=== PATIENT | female | born 1950 | race Caucasian/White ===

== ENCOUNTER 2018-01-11 14:48 | Outpatient (CLI) | payer BC ==
[2018-01-11 15:57] LABS: #Lymphocytes 1.6 thou/uL (1.20-3.40); #Monocytes 0.9 thou/uL (0.11-0.59); #Neutrophils 9.5 thou/uL (1.40-6.50); %Basophils 0.1 % (0.0-1.0); %Eosinophils 0.2 % (0.0-10.0); %Lymphocytes 13.1 % (21.0-51.0); %Monocytes 7.2 % (0.0-10.0); %Neutrophils 79.4 % (42.0-75.0); Hemoglobin 13.9 g/dL (12.0-16.0); Mean Corpuscular HGB CONC 32.3 g/dL (32.0-36.0); Mean Corpuscular Hemoglobin 27.6 pg (27.0-31.0); Mean Corpuscular Volume 85.3 fL (78.0-98.0); Mean Platelet Volume 8.1 fL (7.4-10.4); Platelet Count 308 thou/uL (130-400); RBC Distribution Width 13.5 % (11.5-14.5); Red Blood Cell (RBC) Count 5.04 mill/uL (4.20-5.40); White Blood Cell (WBC) Count 11.9 thou/uL (4.8-10.8)
[2018-01-11 16:12] LABS: ALT (SGPT) 22 U/L (8-55); AST (SGOT) 13 U/L (5-34); Albumin 4.4 g/dL (3.4-4.8); Alkaline Phosphatase 97 U/L (40-150); Anion Gap 13 mmol/L (10-20); BUN (Urea Nitrogen) 30 mg/dL (9.8-20.1); Bilirubin, Total 0.4 mg/dL (0.2-1.2); Calc. Creatinine Clearance 0 mL/min (70-130); Calcium 9.9 mg/dL (7.8-10.44); Carbon Dioxide 27 mmol/L (23-31); Chloride 101 mmol/L (98-107); Estimated GFR-MDRD 61; Globulin 3.5 g/dL (2.4-3.5); Glucose 124 mg/dL (80-115); Protein, Total 7.9 g/dL (6.0-8.3); Sodium 137 mmol/L (136-145)
--- NOTE | 2018-01-12 15:15 | EKG ---
Test Reason : Blood Pressure : / mmHG Vent. Rate : 053 BPM Atrial Rate : 053 BPM P-R Int : 156 ms QRS Dur : 086 ms QT Int : 440 ms P-R-T Axes : 065 037 021 degrees QTc Int : 412 ms Sinus bradycardia Otherwise normal ECG When compared with ECG of 26-JUL-2014 08:34, Vent. rate has decreased BY 34 BPM Nonspecific T wave abnormality no longer evident in Lateral leads Confirmed by ERICA ABREU, . SIsabel ([id number]) on 01/12/2018 3:15:08 PM Referred By: STEPHEN Confirmed By:DR. Zayra MALDONADO MD
== END 2018-01-11 14:49 | disposition home or self-care (01) ==
LOC: LABBT 14:48
PROVIDERS: ATTEND Surgery
DX: Z01.818 Encounter for other preprocedural examination (principal); R51 Headache
CPT/HCPCS: 80053; 85025; 93005; 93010

== ENCOUNTER 2018-01-19 09:34 | Day surgery (SDC) | payer BC, MEDICARE ==
[2018-01-11 15:03] VITALS: BMI 46.6
[2018-01-19] MEDS ORDERED: CEFAZOLIN/Water 2 GM/20 ML SYRINGE ONE (10:21)
[2018-01-19] MEDS ORDERED: Lidocaine 1% w/Epinephrine 1:100K 30 ML VIAL ONE (10:49)
[2018-01-19] MEDS ORDERED: Bacitracin Zinc Ointment 30 gm TUBE ONE (10:49)
[2018-01-19] MEDS ORDERED: Fentanyl 100 MCG/2 ML VIAL ONE (11:06)
[2018-01-19] MEDS ORDERED: HYDROmorphone 2 MG/ML VIAL ONE (11:06)
[2018-01-19] MEDS ORDERED: Midazolam HCl 2 mg/2 ml Vial ONE (11:06)
--- NOTE | 2018-01-19 12:05 | OP ---
DATE OF PROCEDURE: 01/19/2018 PREOPERATIVE DIAGNOSIS: Temporal headache. SURGEON: Champ Adams M.D. PROCEDURE PERFORMED: Left temporal artery biopsy. INDICATIONS: A 68-year-old female who has had recent history of temporal headaches, tender temporal arteries, asked to do a temporal artery biopsy. FINDINGS: Temporal artery. DESCRIPTION OF PROCEDURE: After informed consent was obtained, the patient was taken to the operatin g room, given general mask anesthesia, placed in the supine position. Her left temporal area was pre pped and draped in usual fashion. Local anesthesia infiltrated subcutaneously and deep and a longitu dinal incision was performed. Subcu divided sharply. The artery exposed. Proximal and distal contr ol obtained with hemostat. Central portion excised and it was ligated with 3-0 Vicryl ties. Hemosta sis assured. Subcutaneous reapproximated with interrupted 3-0 Vicryl. Skin closed with a running avelar bcuticular 4-0 Rapide. Dermabond applied. The patient tolerated the procedure well and was transfer red to recovery in good condition. Sponge and needle count verified correct x2.
[2018-01-19] MEDS ORDERED: Ondansetron HCl/PF 4 MG/2 ML Vial ONE (12:58)
[2018-01-19] MEDS ORDERED: Lidocaine 1% PF 5 ML VIAL ONE (12:58)
[2018-01-19] MEDS ORDERED: Ketorolac Tromethamine 30 MG/ML VIAL ONE (12:58)
[2018-01-19] MEDS ORDERED: Glycopyrrolate 0.2 MG/ML 5 ML SYRINGE ONE (12:58)
[2018-01-19] MEDS ORDERED: Dexamethasone 20 MG/5 ML VIAL ONE (12:58)
[2018-01-19] MEDS ORDERED: PROPOFOL 200 MG/20 ML VIAL ONE (12:58)
== END 2018-01-19 14:00 | disposition home or self-care (01) ==
LOC: SDC 09:34
PROVIDERS: ATTEND Surgery
PROC: 03BT0ZX Excision of Left Temporal Artery, Open Approach, Diagnostic (ICD-10-PCS; principal; 2018-01-19)
DX: M31.6 Other giant cell arteritis (principal); M19.90 Unspecified osteoarthritis, unspecified site; J45.909 Unspecified asthma, uncomplicated; E78.00 Pure hypercholesterolemia, unspecified; F32.9 Major depressive disorder, single episode, unspecified; I10 Essential (primary) hypertension; E03.9 Hypothyroidism, unspecified; Z79.52 Long term (current) use of systemic steroids; Z79.899 Other long term (current) drug therapy
CPT/HCPCS: 36416; 88305; 88313; J1100; J1170; J1885; J2001; J2250; J2405; J2704; J3010